=== PATIENT | male | born 1995 | race Caucasian/White ===

== ENCOUNTER 2019-04-04 17:08 | Emergency (ER) | payer BC ==
[~2019-04-04] VITALS: Ht 177.8 cm; Wt 76.8 kg
[2019-04-04 18:06] VITALS: BP 152/95; TEMP 99.1
[2019-04-04] MEDS ORDERED: AMOXICILLIN 8751 TAB PO (20:02)
[2019-04-04] MEDS ORDERED: NORCO 325 MG-51 TAB PO (20:05)
[2019-04-04 20:27] VITALS: PULSE 60
== END 2019-04-04 21:31 | disposition home or self-care (01) ==
LOC: COL.ER 17:08
DX: S91.211A Laceration without foreign body of right great toe with damage to nail, initial encounter (principal); Z23 Encounter for immunization; Z88.1 Allergy status to other antibiotic agents; W31.3XXA Contact with prime movers, initial encounter; Y93.E9 Activity, other interior property and clothing maintenance; Y92.009 Unspecified place in unspecified non-institutional (private) residence as the place of occurrence of the external cause